=== PATIENT | male | born 1950 | race Caucasian/White ===

== ENCOUNTER → 2017-11-14 | Outpatient (CLI) | payer MEDICARE, OTHER ==
[~2017-11-14] MED LIST: AMLO10 PO; ESOM20 PO; FOLI400 PO; GABA100 PO; HYDACE5 PO; IBUP600 PO; LEVSOD100 PO; LISI20 PO; LISI5 PO; LORA1 PO; METO25ER PO; OMEP20ER PO; OXYACE5T PO; OXYC10ER PO; OXYC5 PO; RIBA200; RXHYDACE PO; [UNRECOGNIZED DRUG - CODE]
== END | disposition home or self-care (01) ==
LOC: LAB 15:00
DX: C85.90 Non-Hodgkin lymphoma, unspecified, unspecified site (principal); L95.9 Vasculitis limited to the skin, unspecified; R21 Rash and other nonspecific skin eruption; D72.818 Other decreased white blood cell count; D69.59 Other secondary thrombocytopenia; R53.83 Other fatigue; R53.81 Other malaise
CPT/HCPCS: 83615; 86592

== ENCOUNTER → 2017-12-23 | Outpatient (CLI) | payer MEDICARE, OTHER ==
[2017-12-23 12:07] LABS: Albumin, Blood 3.4 g/dL (3.4-5.0); Albumin/Globulin Ratio 1.5 (0.8-1.8); Bilirubin, Total 0.7 mg/dL (0.1-1.0); Bun/Creatinine Ratio 40.5 (12.0-20.0); Creatinine, Blood 2.27 mg/dL (0.60-1.20); Globulin, Blood 2.2 g/dL (2.2-4.0); Potassium, Blood 4.1 mmol/L (3.5-5.5); Total Protein, Blood 5.6 g/dL (6.4-8.2)
== END ==
LOC: LAB 11:48 → LAB SHORT 11:48
PROVIDERS: Internal Medicine Hematology & Oncology
DX: C83.07 Small cell B-cell lymphoma, spleen (principal)
CPT/HCPCS: 80053

== ENCOUNTER → 2017-12-30 | Outpatient (CLI) | payer MEDICARE, OTHER ==
[2017-12-30 16:59] LABS: Albumin, Blood 3.2 g/dL (3.4-5.0); Albumin/Globulin Ratio 1.7 (0.8-1.8); Bilirubin, Total 0.7 mg/dL (0.1-1.0); Bun/Creatinine Ratio 25.4 (12.0-20.0); Calcium, Blood 8.5 mg/dL (8.5-10.1); Creatinine, Blood 2.56 mg/dL (0.60-1.20); Globulin, Blood 1.9 g/dL (2.2-4.0); Potassium, Blood 4.2 mmol/L (3.5-5.5); Total Protein, Blood 5.1 g/dL (6.4-8.2)
== END | disposition home or self-care (01) ==
LOC: LAB SHORT 09:00 → LAB 09:00
PROVIDERS: Internal Medicine Hematology & Oncology
DX: C88.4 Extranodal marginal zone B-cell lymphoma of mucosa-associated lymphoid tissue [MALT-lymphoma] (principal); L98.8 Other specified disorders of the skin and subcutaneous tissue
CPT/HCPCS: 80053

== ENCOUNTER → 2020-10-09 | Outpatient (CLI) | payer MEDICARE, OTHER | END | disposition home or self-care (01) | LOC: LAB SHORT 12:53 → LAB 12:53 | DX: L57.8 Other skin changes due to chronic exposure to nonionizing radiation (principal); L81.8 Other specified disorders of pigmentation; B37.2 Candidiasis of skin and nail; B88.9 Infestation, unspecified | CPT/HCPCS: 88305; 88312 ==

== ENCOUNTER 2021-04-09 15:05 | Inpatient (IN) | payer MEDICARE, OTHER ==
[~2021-04-09] VITALS: Ht 177.8 cm; Wt 89.2 kg
[2021-04-09 15:42] LABS: BASOPHILS ABSOLUTE AUTO 0.04 K/mm3 (0.00-0.23); BASOPHILS PERCENT AUTO 1 % (0-2); EOSINOPHILS ABSOLUTE AUTO 0.14 K/mm3 (0.00-0.68); EOSINOPHILS PERCENT AUTO 2 % (0-6); Hematocrit 41.4 % (37.0-53.0); Hemoglobin 14.3 g/dL (13.5-17.5); IMMATURE GRAN ABSOLUTE AUTO 0.03 K/mm3 (0.00-0.10); IMMATURE GRAN PERCENT AUTO 0 % (0-1); LYMPHOCYTES ABSOLUTE AUTO 1.69 K/mm3 (0.84-5.20); LYMPHOCYTES PERCENT AUTO 24 % (21-46); MONOCYTES ABSOLUTE AUTO 0.48 K/mm3 (0.16-1.47); MONOCYTES PERCENT AUTO 7 % (4-13); Mean Corpuscular HGB 32.9 pg (26.0-34.0); Mean Corpuscular HGB Conc 34.5 g/dL (31.5-36.5); Mean Corpuscular Volume 95 fL (80-100); NEUTROPHILS ABSOLUTE AUTO 4.55 K/mm3 (1.96-9.15); NEUTROPHILS PERCENT AUTO 66 % (41-73); Platelet Count 144 K/mm3 (150-400); RDW Coefficient Variation 13.2 % (11.7-14.2); Red Blood Cell Count 4.35 M/mm3 (4.30-5.90); White Blood Cell Count 6.93 K/mm3 (4.00-11.30)
[2021-04-09 16:12] LABS: Albumin, Blood 3.9 g/dL (3.4-5.0); Albumin/Globulin Ratio 1.4 (0.8-1.8); Bilirubin, Total 0.7 mg/dL (0.1-1.0); Bun/Creatinine Ratio 12.8 (12.0-20.0); Calcium, Blood 8.7 mg/dL (8.5-10.1); Creatinine, Blood 1.49 mg/dL (0.60-1.20); Globulin, Blood 2.8 g/dL (2.2-4.0); Total Protein, Blood 6.7 g/dL (6.4-8.2)
[2021-04-09 16:25] LABS: Troponin I 8.44 ng/mL (0.000-0.040)
[2021-04-09] MEDS ORDERED: TOPROL XL50 M1 PO (17:06)
[2021-04-09] MEDS ORDERED: Catapres0.1 MG PO (17:08)
[2021-04-09] MEDS ORDERED: LISI5 PO (17:08)
[2021-04-09] MEDS ORDERED: AMLODIPINE BESYL5 MG PO (17:09)
[2021-04-09 19:34] LABS: International Normalized Ratio 1.04; Prothrombin Time Results 11.2 Sec (9.7-11.5)
[2021-04-09 20:27] LABS: SARS-Cov-2 (COVID-19) PCR, MMC NEGATIVE (NEGATIVE)
[2021-04-10 02:10] LABS: Hematocrit 40.2 % (37.0-53.0); Hemoglobin 14.1 g/dL (13.5-17.5); Mean Corpuscular HGB 33.2 pg (26.0-34.0); Mean Corpuscular HGB Conc 35.1 g/dL (31.5-36.5); Mean Corpuscular Volume 95 fL (80-100); Mean Platelet Volume 9.9 fL (9.1-12.4); Platelet Count 130 K/mm3 (150-400); RDW Coefficient Variation 13.1 % (11.7-14.2); RDW Standard Deviation 45.2 fL (35.1-46.3); Red Blood Cell Count 4.25 M/mm3 (4.30-5.90); White Blood Cell Count 7.11 K/mm3 (4.00-11.30)
[2021-04-10 02:25] LABS: LDL/HDL RATIO 4.1
[2021-04-10 02:26] LABS: Anion Gap 4 mmol/L (6-16); Blood Urea Nitrogen 19 mg/dL (8-24); Bun/Creatinine Ratio 13.9 (12.0-20.0); CHOL/HDL RATIO 6.2; CO2, Blood 25 mmol/L (21-32); Calcium, Blood 8.9 mg/dL (8.5-10.1); Chloride, Blood 110 mmol/L (98-108); Cholesterol 160 mg/dL (50-200); Creatinine, Blood 1.37 mg/dL (0.60-1.20); Glomerular Filtration Rate 52 (60-); Glucose, Blood 103 mg/dL (70-99); HDL Cholesterol 26 mg/dL (>39); Low Density Lipoprotein Chol 106 mg/dL (0-110); Potassium, Blood 3.8 mmol/L (3.5-5.5); Sodium, Blood 139 mmol/L (136-145); Triglycerides 139 mg/dL (30-160); Very Low Density Lipoprot Chol 27 mg/dL (6-32)
--- NOTE | 2021-04-10 02:52 | NUR ---
ADMISSION NOTE PT ARRIVED AT PCU AT 2053. HEPARIN DRIP INFUSING IN RIGHT AC. PT ALERT AND ORIENTED X4. COOPERATIVE AND RESPONSIVE TO CARE. CHEST PAIN INITIALLY 1-2/10 NEAR LEFT ARM. TROPONIN LEVELS INCREASED FROM 7.3 @17:19 TO 8.73 @0:57. PROVIDER NOTIFIED AND CARDIOLOGY CONSULT ORDERED WITH DR CHICAS. PT IS NSR IN THE 60'S AND MAINTAINING OVER 96% O2 SATS ON RA. BP STABLE. NO CHEST PAIN AT THIS TIME. IN BED RESTING WITH CALL ALARM AT SIDE. WILL CONTINUE TO MONITOR
--- NOTE | 2021-04-10 06:52 | NUR ---
SHIFT SUMMARY PT ALERT AND ORIENTED X4. NO CHEST PAIN AT THIS TIME. VSS. HR NSR 60'S AND 70'S AND 02 SATS >97% ON RA. PLEASANT AND COOPERATIVE TO CARE. CARDIOLOGY CONSULT WITH DR CHICAS TODAY. COMPLETELY INDEPENDENT FOR ADLS. NPO. RIGHT A/C PATENT WITH HEPARIN INFUSING. IN BED WATCHING TV WITH CALL ALARM AT SIDE. WILL CONTINUE TO MONITOR UNTIL REPORT GIVEN TO DAYSHIFT RN.
--- NOTE | 2021-04-10 09:27 | NUR ---
PATIENT TO ANODIZER FOR PROCEDURE
--- NOTE | 2021-04-10 10:42 | NUR ---
RETURN FROM [facility] PATIENT BACK FROM [facility]. BEDSIDE REPORT GIVEN FROM [facility] STAFF. TR BAND IN PLACE. 13ML OF AIR IN TR BAND AT 1025. NO BLEEDING UNDER TR BAND. VITALS STABLE.
--- NOTE | 2021-04-10 16:04 | NUR ---
UPDATE STARTED TO DEFLATE PATIENT'S TR BAND AT 1200. TR BAND WAS COMPLETLEY DEFLATED AT 1430. SUCCESSFULLY ABLE TO DEFLATE TR BAND BY 2ML OF AIR EVERY 30 MINUTES. TR BAND REMOVED AT 1530 AND REPLACED WITH WINDOW TEGADERM. NO SWELLING AND MINIMAL OOZING AT ANGIO SITE. PULSES PALPABLE. CAP REFILL <3 SECONDS. DENIES CHEST PAIN OR DISCOMFORT. RESTING QUIETLY.
--- NOTE | 2021-04-10 17:50 | NUR ---
SHIFT SUMMARY PATIENT A&Ox4 THROUGHOUT SHIFT. VITAL SIGNS STABLE. OXYGEN SATURATION REMAINS ABOVE 92% ON RA. DENIED CHEST PAIN PRIOR TO AND AFTER ANGIO. RIGHT RADIAL ANGIO SITE IS COVERED WITH WINDOW DRESSING. MINIMAL OOZING FROM SITE AFTER REMOVAL OF TR BAND. NO EDEMA NOTED. CAPILLARY REFILL <3 SECONDS. DENIES PAIN, NUMBNESS OR TINGLING IN RIGHT HAND. BOARD IN PLACE ON RIGHT WRIST. RESTING COMFORTABLY, CALL LIGHT IN REACH. WILL REPORT TO COMPLAINT EVALUATION SUPERVISOR RN.
[2021-04-11 03:12] LABS: BASOPHILS ABSOLUTE AUTO 0.02 K/mm3 (0.00-0.23); BASOPHILS PERCENT AUTO 0 % (0-2); EOSINOPHILS ABSOLUTE AUTO 0.15 K/mm3 (0.00-0.68); EOSINOPHILS PERCENT AUTO 3 % (0-6); Hematocrit 34.7 % (37.0-53.0); Hemoglobin 12.4 g/dL (13.5-17.5); IMMATURE GRAN ABSOLUTE AUTO 0.03 K/mm3 (0.00-0.10); IMMATURE GRAN PERCENT AUTO 1 % (0-1); LYMPHOCYTES ABSOLUTE AUTO 1.74 K/mm3 (0.84-5.20); LYMPHOCYTES PERCENT AUTO 30 % (21-46); MONOCYTES ABSOLUTE AUTO 0.68 K/mm3 (0.16-1.47); MONOCYTES PERCENT AUTO 12 % (4-13); Mean Corpuscular HGB 33.2 pg (26.0-34.0); Mean Corpuscular HGB Conc 35.7 g/dL (31.5-36.5); Mean Corpuscular Volume 93 fL (80-100); NEUTROPHILS ABSOLUTE AUTO 3.17 K/mm3 (1.96-9.15); NEUTROPHILS PERCENT AUTO 55 % (41-73); Platelet Count 124 K/mm3 (150-400); RDW Standard Deviation 44.3 fL (35.1-46.3); Red Blood Cell Count 3.73 M/mm3 (4.30-5.90); White Blood Cell Count 5.79 K/mm3 (4.00-11.30)
[2021-04-11 03:26] LABS: Albumin, Blood 3.3 g/dL (3.4-5.0); Anion Gap 6 mmol/L (6-16); Blood Urea Nitrogen 17 mg/dL (8-24); Bun/Creatinine Ratio 12.2 (12.0-20.0); CO2, Blood 25 mmol/L (21-32); Calcium, Blood 8.5 mg/dL (8.5-10.1); Chloride, Blood 109 mmol/L (98-108); Creatinine, Blood 1.39 mg/dL (0.60-1.20); Glomerular Filtration Rate 51 (60-); Glucose, Blood 101 mg/dL (70-99); Sodium, Blood 140 mmol/L (136-145)
--- NOTE | 2021-04-11 08:22 | NUR ---
SHIFT SUMMARY: PT C/O INTERMITTENT CHEST PAIN THROUGHOUT NIGHT. STARTED ON RANEXA PER ORDERS. TROPONINS CONTINUING TO TREND DOWN. HEP GTT INFUSING PER EMAR. ACCESS SITE TO R WRIST C/D/I WITH TEGADERM IN PLACE. NO BLEEDING OR HEMATOMA PRESENT. PT C/O NAUSEA THIS MORNING. REPORT GIVEN TO DAY SHIFT RN WHO RECIEVED ORDER FOR ZOFRAN. PT APPEARS TO BE RESTING MOST OF SHIFT. VS WNL T/O NIGHT.
--- NOTE | 2021-04-11 11:34 | NUR ---
AM NOTE... ASSUMED CARE OF PT AT 0700 PT IS A&Ox4 AND IND IN THE ROOM. PT IS S/P ANGIO WITH RIGHT RADIAL SITE, SITE HAS A TEGADERM DRESSING THAT IS C/D/I WITH NO SWELLING, BLEEDING OR HEMATOMA. PT IS IN SR W/PACs IN THE 70'S, PT'S BP STABLE PT HAS C/O OF CHEST PAIN 1/10 AND SOME NAUSEA, THIS WAS TREATED WITH ZOFRAN WHICH THE PT STATED HELPED. NO EDEMA NOTED ON ASSESSMENT. PT'S HEPARIN GTT WAS D/C'd BY BUSINESS MANAGEMENT SPECIALIST. PT IS ON RA WITH O2 SATS >95% L/S CLEAR T/O. PT DOES BECOME SOB WITH ACTIVITY. PT IS HOPING TO D/C HOME TODAY. WILL CONTINUE TO MONITOR.
[2021-04-11] MEDS ORDERED: NAC600 MG PO (14:05)
[2021-04-11] MEDS ORDERED: ATOR80 PO (14:06)
[2021-04-11] MEDS ORDERED: CLOP75 PO (14:06)
[2021-04-11] MEDS ORDERED: ASPI81CH PO (14:06)
[2021-04-11] MEDS ORDERED: RANO500T PO (14:07)
[2021-04-11] MEDS ORDERED: Isosorbide Mono30 MG PO (14:07)
[2021-04-11] MEDS ORDERED: DOCU100 PO (14:07)
--- NOTE | 2021-04-11 15:22 | NUR ---
PT D/C HOME PT D/C HOME WITH HIS , ALL OF PTS BELONGINGS PACKED AND SENT WITH THE PT. DISCHARGE INFORMATION AND EDUCATION PROVIDED IN WRITTEN AND VERBAL FORMAT. IV WAS REMOVED WNL. PT DENIED ANY CHEST PAIN/PRESSURE N/V OR SOB UPON D/C.
== END 2021-04-11 15:39 | disposition home or self-care (01) | DRG 281 ==
LOC: ER 15:05 → PCU 18:49 → SURS 04-10 14:00
PROVIDERS: Internal Medicine Nephrology; Pharmacist; Physician Assistant; Student in an Organized Health Care Education/Training Program; ADMIT Hospitalist
PROC: 4A023N7 Measurement of Cardiac Sampling and Pressure, Left Heart, Percutaneous Approach (ICD-10-PCS; principal; 2021-04-10)
PROC: B211YZZ Fluoroscopy of Multiple Coronary Arteries using Other Contrast (ICD-10-PCS; 2021-04-10)
DX: I21.4 Non-ST elevation (NSTEMI) myocardial infarction (principal); C85.90 Non-Hodgkin lymphoma, unspecified, unspecified site; N25.81 Secondary hyperparathyroidism of renal origin; Z20.822 Contact with and (suspected) exposure to COVID-19; I25.10 Atherosclerotic heart disease of native coronary artery without angina pectoris; D69.6 Thrombocytopenia, unspecified; I12.9 Hypertensive chronic kidney disease with stage 1 through stage 4 chronic kidney disease, or unspecified chronic kidney disease; N18.31 Chronic kidney disease, stage 3a; L95.9 Vasculitis limited to the skin, unspecified; D64.9 Anemia, unspecified; E86.9 Volume depletion, unspecified; E87.70 Fluid overload, unspecified; N28.9 Disorder of kidney and ureter, unspecified; E83.39 Other disorders of phosphorus metabolism; Z79.899 Other long term (current) drug therapy; Z88.0 Allergy status to penicillin; Z88.5 Allergy status to narcotic agent; Z87.891 Personal history of nicotine dependence; Z85.820 Personal history of malignant melanoma of skin; Z86.19 Personal history of other infectious and parasitic diseases
CPT/HCPCS: 36415; 71046; 71275; 74175; 76937; 80048; 80053; 80061; 80069; 83036; 83690; 83735; 83880; 84484; 85025; 85027; 85610; 85730; 93005; 93010; 93306; 93454; 96365; 99152; 99153; 99285-25; A9270; C1769; C1894; J1644; J2250; J2405; J3010; J7030; J7040; J7050; J7060; Q9967; U0004

== ENCOUNTER 2021-05-15 10:41 | Emergency (ER) | payer MEDICARE, OTHER ==
[~2021-05-15] VITALS: Ht 175.3 cm; Wt 88.5 kg
[~2021-05-15 10:41] MED LIST changes: +AMLODIPINE BESYL5 MG PO; +ASPI81CH PO; +ATOR80 PO; +CLOP75 PO; +Catapres0.1 MG PO; +DOCU100 PO; +Isosorbide Mono30 MG PO; +NAC600 MG PO; +RANO500T PO; +TOPROL XL50 M1 PO
[2021-05-15 11:28] LABS: BASOPHILS ABSOLUTE AUTO 0.03 K/mm3 (0.00-0.23); BASOPHILS PERCENT AUTO 0 % (0-2); EOSINOPHILS PERCENT AUTO 0 % (0-6); Hematocrit 38.1 % (37.0-53.0); Hemoglobin 13.4 g/dL (13.5-17.5); IMMATURE GRAN ABSOLUTE AUTO 0.09 K/mm3 (0.00-0.10); IMMATURE GRAN PERCENT AUTO 1 % (0-1); LYMPHOCYTES ABSOLUTE AUTO 1.19 K/mm3 (0.84-5.20); LYMPHOCYTES PERCENT AUTO 6 % (21-46); MONOCYTES PERCENT AUTO 5 % (4-13); Mean Corpuscular HGB 33.1 pg (26.0-34.0); Mean Corpuscular HGB Conc 35.2 g/dL (31.5-36.5); Mean Corpuscular Volume 94 fL (80-100); Mean Platelet Volume 10.4 fL (9.1-12.4); NEUTROPHILS ABSOLUTE AUTO 17.05 K/mm3 (1.96-9.15); NEUTROPHILS PERCENT AUTO 88 % (41-73); Platelet Count 158 K/mm3 (150-400); RDW Standard Deviation 41.6 fL (35.1-46.3); Red Blood Cell Count 4.05 M/mm3 (4.30-5.90); White Blood Cell Count 19.26 K/mm3 (4.00-11.30)
[2021-05-15 11:41] LABS: Alanine Aminotransfer (ALT/SGP 50 U/L (12-78); Albumin, Blood 3.5 g/dL (3.4-5.0); Albumin/Globulin Ratio 1.1 (0.8-1.8); Alk Phos 86 U/L (50-136); Anion Gap 7 mmol/L (6-16); Aspartate Aminotrans (AST/SGOT 30 U/L (12-37); Bilirubin, Total 0.3 mg/dL (0.1-1.0); Blood Urea Nitrogen 35 mg/dL (8-24); Bun/Creatinine Ratio 15.2 (12.0-20.0); CO2, Blood 25 mmol/L (21-32); Calcium, Blood 9.1 mg/dL (8.5-10.1); Chloride, Blood 105 mmol/L (98-108); Globulin, Blood 3.3 g/dL (2.2-4.0); Glomerular Filtration Rate 28 (60-); Glucose, Blood 179 mg/dL (70-99); Potassium, Blood 4.9 mmol/L (3.5-5.5); Sodium, Blood 137 mmol/L (136-145); Total Protein, Blood 6.8 g/dL (6.4-8.2); Troponin I <0.015 ng/mL (0.000-0.040)
== END 2021-05-15 15:10 | disposition home or self-care (01) ==
LOC: ER 10:41
PROVIDERS: Emergency Medicine
DX: R07.9 Chest pain, unspecified (principal); I77.6 Arteritis, unspecified; I10 Essential (primary) hypertension; I25.10 Atherosclerotic heart disease of native coronary artery without angina pectoris; I25.2 Old myocardial infarction; Z23 Encounter for immunization; Z88.5 Allergy status to narcotic agent; Z88.0 Allergy status to penicillin; Z79.899 Other long term (current) drug therapy; Z79.82 Long term (current) use of aspirin; Z79.02 Long term (current) use of antithrombotics/antiplatelets; Z87.891 Personal history of nicotine dependence; Z95.5 Presence of coronary angioplasty implant and graft
CPT/HCPCS: 0031A; 36415; 71045; 80053; 83880; 84484; 85025; 91303; 93005; 93010; 99285-25

== ENCOUNTER → 2021-08-27 | Outpatient (CLI) | payer MEDICARE, OTHER ==
[~2021-08-27] MED LIST changes: +AMLO5 PO; +CEPH500 PO; +DILT120ERA PO; +METO50 PO; +METO50ER PO; +MINOCYCLINE HC100 M2 PO; +PANT40 PO; +Seroquel Xr50 MG PO; +TEMA30 PO; +Tessalon200 MG PO
== END | disposition home or self-care (01) ==
LOC: PLD 12:00
DX: L43.9 Lichen planus, unspecified (principal)
CPT/HCPCS: 87070; 87102; 87205; 88305

== ENCOUNTER → 2021-11-16 | Outpatient (CLI) | payer MEDICARE, OTHER | END | disposition home or self-care (01) | LOC: LAB SHORT 12:03 | DX: C44.219 Basal cell carcinoma of skin of left ear and external auricular canal (principal) | CPT/HCPCS: 88305 ==

== ENCOUNTER → 2021-12-28 | Outpatient (CLI) | payer MEDICARE, OTHER | END | disposition home or self-care (01) | LOC: LAB SHORT 07:38 → PLD 07:38 → LAB 07:38 | DX: C44.219 Basal cell carcinoma of skin of left ear and external auricular canal (principal); D22.22 Melanocytic nevi of left ear and external auricular canal | CPT/HCPCS: 88305 ==

== ENCOUNTER → 2023-03-01 | Outpatient (CLI) | payer MEDICARE, OTHER ==
[~2023-03-01] MED LIST changes: +ALLO100 PO; +MAGNESIUM OXID500 MG PO
== END | disposition home or self-care (01) ==
LOC: LAB SHORT 12:01 → PLD 12:01
DX: D23.71 Other benign neoplasm of skin of right lower limb, including hip (principal)
CPT/HCPCS: 88305; 88342

== ENCOUNTER 2023-03-15 09:24 | Day surgery (SDC) | payer MEDICARE, OTHER ==
[2023-03-15] VITALS (7 sets, daily range): BP systolic 107–173; BP diastolic 69–106
[~2023-03-15] VITALS: Ht 175.3 cm; Wt 87.8 kg
[~2023-03-15 09:24] MED LIST changes: +FENOFIBRATE30 MG PO; +Nifedipine5 GM TOP
[2023-03-15] MEDS ORDERED: POLYETHYLENE G500 G1 PO (09:51)
[2023-03-15 10:37] LABS: Hematocrit 43.9 % (37.0-53.0); Hemoglobin 14.8 g/dL (13.5-17.5); Mean Corpuscular HGB 31.7 pg (26.0-34.0); Mean Corpuscular HGB Conc 33.7 g/dL (31.5-36.5); Mean Corpuscular Volume 94 fL (80-100); Mean Platelet Volume 10.3 fL (9.1-12.4); Platelet Count 200 K/mm3 (150-400); RDW Coefficient Variation 12.9 % (11.7-14.2); RDW Standard Deviation 43.8 fL (35.1-46.3); Red Blood Cell Count 4.67 M/mm3 (4.30-5.90); White Blood Cell Count 8.41 K/mm3 (4.00-11.30)
[2023-03-15 10:48] LABS: International Normalized Ratio 1.07; Prothrombin Time Results 11.2 Sec (9.7-11.5)
[2023-03-15 10:49] LABS: Bun/Creatinine Ratio 10.7 (12.0-20.0); Calcium, Blood 9.4 mg/dL (8.5-10.1); Creatinine, Blood 2.43 mg/dL (0.60-1.20)
--- NOTE | 2023-03-15 10:57 | NUR ---
PATIENT CARE RESUMED BY LIBERTAD FERNANDO RN. CALL LIGHT WITHIN REACH OF PATIENT.
--- NOTE | 2023-03-15 15:00 | NUR ---
DISCHARGE SUMMARY PT A&OX4, VSS/RA, STEVAN PO, VOIDED, INDEPENDENT/DRESSED SELF, IV DC'D, LEFT FLOOR VIA WC WITH RN, TO GO HOME WITH /[employer], WITH ALL PERSONAL POSSESSIONS INCLUDING DC PACKET/1 NARC SCRIPT/YA MED. DC INS PROVIDED AND PT REP UNDERSTANDING THOSE INSTRUCTIONS.
== END 2023-03-15 23:20 | disposition home or self-care (01) ==
LOC: ORSCMMR 09:24 → ORD 09:24 → ORSCMMR 09:25 → ORD 23:20
PROVIDERS: Surgery
PROC: 0DBQ7ZZ Excision of Anus, Via Natural or Artificial Opening (ICD-10-PCS; principal; 2023-03-15 10:30)
PROC: 0DBQXZX Excision of Anus, External Approach, Diagnostic (ICD-10-PCS; principal; 2023-03-15 10:30)
PROC: 0DBQ0ZZ Excision of Anus, Open Approach (ICD-10-PCS; principal; 2023-03-15 10:30)
DX: K60.2 Anal fissure, unspecified (principal); K60.3 Anal fistula; K64.4 Residual hemorrhoidal skin tags; I25.10 Atherosclerotic heart disease of native coronary artery without angina pectoris; I12.9 Hypertensive chronic kidney disease with stage 1 through stage 4 chronic kidney disease, or unspecified chronic kidney disease; N18.4 Chronic kidney disease, stage 4 (severe); Z85.72 Personal history of non-Hodgkin lymphomas; Z87.891 Personal history of nicotine dependence; Z79.02 Long term (current) use of antithrombotics/antiplatelets; Z79.899 Other long term (current) drug therapy; Z79.82 Long term (current) use of aspirin
CPT/HCPCS: 80048; 85027; 85610; 85730; 88304; 88305; A9270; J0690; J1100; J2405; J2704; J3010; J7120

== ENCOUNTER 2023-03-23 12:16 | Inpatient (IN) | payer MEDICARE, OTHER ==
[~2023-03-23] VITALS: Ht 175.3 cm; Wt 85.2 kg
[~2023-03-23 12:16] MED LIST changes: +POLYETHYLENE G500 G1 PO
[2023-03-23 13:03] LABS: BASOPHILS ABSOLUTE AUTO 0.07 K/mm3 (0.00-0.23); BASOPHILS PERCENT AUTO 1 % (0-2); EOSINOPHILS ABSOLUTE AUTO 0.48 K/mm3 (0.00-0.68); EOSINOPHILS PERCENT AUTO 4 % (0-6); Hematocrit 44.1 % (37.0-53.0); Hemoglobin 15.1 g/dL (13.5-17.5); IMMATURE GRAN PERCENT AUTO 1 % (0-1); LYMPHOCYTES PERCENT AUTO 25 % (21-46); MONOCYTES ABSOLUTE AUTO 1.25 K/mm3 (0.16-1.47); MONOCYTES PERCENT AUTO 11 % (4-13); Mean Corpuscular HGB 32.3 pg (26.0-34.0); Mean Corpuscular HGB Conc 34.2 g/dL (31.5-36.5); Mean Corpuscular Volume 94 fL (80-100); Mean Platelet Volume 10.3 fL (9.1-12.4); NEUTROPHILS ABSOLUTE AUTO 6.68 K/mm3 (1.96-9.15); NEUTROPHILS PERCENT AUTO 59 % (41-73); Platelet Count 200 K/mm3 (150-400); RDW Coefficient Variation 12.7 % (11.7-14.2); RDW Standard Deviation 43.9 fL (35.1-46.3); Red Blood Cell Count 4.68 M/mm3 (4.30-5.90); White Blood Cell Count 11.38 K/mm3 (4.00-11.30)
[2023-03-23 13:16] LABS: Albumin, Blood 3.7 g/dL (3.4-5.0); Albumin/Globulin Ratio 1.4 (0.8-1.8); Bilirubin, Total 0.6 mg/dL (0.1-1.0); Bun/Creatinine Ratio 14.1 (12.0-20.0); Calcium, Blood 8.4 mg/dL (8.5-10.1); Creatinine, Blood 4.81 mg/dL (0.60-1.20); Globulin, Blood 2.7 g/dL (2.2-4.0); Potassium, Blood 4.4 mmol/L (3.5-5.5); Total Protein, Blood 6.4 g/dL (6.4-8.2)
[2023-03-23 14:14] LABS: BASOPHILS ABSOLUTE AUTO 0.04 K/mm3 (0.00-0.23); BASOPHILS PERCENT AUTO 0 % (0-2); EOSINOPHILS ABSOLUTE AUTO 0.32 K/mm3 (0.00-0.68); EOSINOPHILS PERCENT AUTO 3 % (0-6); Hematocrit 41.7 % (37.0-53.0); Hemoglobin 14.2 g/dL (13.5-17.5); IMMATURE GRAN ABSOLUTE AUTO 0.09 K/mm3 (0.00-0.10); IMMATURE GRAN PERCENT AUTO 1 % (0-1); LYMPHOCYTES ABSOLUTE AUTO 1.84 K/mm3 (0.84-5.20); LYMPHOCYTES PERCENT AUTO 19 % (21-46); MONOCYTES ABSOLUTE AUTO 1.24 K/mm3 (0.16-1.47); MONOCYTES PERCENT AUTO 12 % (4-13); Mean Corpuscular HGB 31.8 pg (26.0-34.0); Mean Corpuscular HGB Conc 34.1 g/dL (31.5-36.5); Mean Corpuscular Volume 94 fL (80-100); Mean Platelet Volume 10.3 fL (9.1-12.4); NEUTROPHILS ABSOLUTE AUTO 6.44 K/mm3 (1.96-9.15); NEUTROPHILS PERCENT AUTO 65 % (41-73); Platelet Count 167 K/mm3 (150-400); RDW Coefficient Variation 12.8 % (11.7-14.2); RDW Standard Deviation 43.8 fL (35.1-46.3); Red Blood Cell Count 4.46 M/mm3 (4.30-5.90); White Blood Cell Count 9.97 K/mm3 (4.00-11.30)
[2023-03-23 14:41] LABS: Bun/Creatinine Ratio 14.4 (12.0-20.0); Calcium, Blood 8.3 mg/dL (8.5-10.1); Creatinine, Blood 4.66 mg/dL (0.60-1.20); Magnesium, Blood 2.2 mg/dL (1.6-2.4); Phosphorus, Blood 4.9 mg/dL (2.5-4.9); Potassium, Blood 4.5 mmol/L (3.5-5.5); Thyroid Stimulating Hormone 0.712 uIU/mL (0.360-4.800)
[2023-03-23 16:02] LABS: Source, Urine Clean Catch
[2023-03-23 16:24] LABS: Appearance, Urine Clear (Clear); Bilirubin, Urine Neg (Neg); Blood, Urine Neg (Neg); Color, Urine Yellow (P-Yellow); Glucose Qualitative, Urine Neg (Neg); Ketones, Urine Neg (Neg); Leukocyte Esterase, Urine Neg (Neg); Nitrite, Urine Neg (Neg); Protein, Urine Neg (Neg); Urobilinogen, Urine NORM (Normal)
[2023-03-23 17:22] VITALS: BP 88/64
[2023-03-23] MEDS ORDERED: FENOFIBRATE48 MG PO (18:31)
[2023-03-23 19:34] VITALS: BP 127/67
--- NOTE | 2023-03-24 04:04 | NUR ---
CONTRACTOR BROOMCORN THRESHING SUMMARY NO ACUTE CHANGES OVERNIGHT. A&OX4. PATIENT EFFECTIVELY COMMUNICATES NEEDS. VSS. RR EVEN AND UNLABORED ON RA. TELE REVEALS SINUS RHYTHM, HR 70'S. NS INFUSING @ 100ML/HR. NO ACUTE SIGNS OR SYMPTOMS. BED LOW AND LOCKED. CALL LIGHT WITHIN REACH. THIS RN WILL CONTINUE TO MONITOR.
[2023-03-24 04:30] VITALS: BP 131/78
[2023-03-24 08:15] LABS: Hematocrit 43.2 % (37.0-53.0); Hemoglobin 14.8 g/dL (13.5-17.5)
[2023-03-24 08:16] VITALS: BP 136/72
[2023-03-24 08:38] LABS: Albumin, Blood 3.9 g/dL (3.4-5.0); Anion Gap 6 mmol/L (6-16); Blood Urea Nitrogen 52 mg/dL (8-24); Bun/Creatinine Ratio 17.7 (12.0-20.0); CO2, Blood 25 mmol/L (21-32); Calcium, Blood 8.5 mg/dL (8.5-10.1); Chloride, Blood 108 mmol/L (98-108); Creatinine, Blood 2.94 mg/dL (0.60-1.20); Glomerular Filtration Rate 22 (60-); Glucose, Blood 106 mg/dL (70-99); Magnesium, Blood 2.3 mg/dL (1.6-2.4); Phosphorus, Blood 2.9 mg/dL (2.5-4.9); Potassium, Blood 4.4 mmol/L (3.5-5.5); Sodium, Blood 139 mmol/L (136-145)
[2023-03-24 15:15] VITALS: BP 134/72
--- NOTE | 2023-03-24 17:31 | NUR ---
SHIFT SUMMARY PT UP TO BATHROOM SEVERAL TIMES TODAY USING FWW. NO FEELING DIZZY. REPORTS DIARRHEA THIS AFTERNOON. MEDICATED FOR PAIN AT RECTAL FISTULA SITE WITH TYLENOL WITH EFFECT. IN TO VISIT FOR SHORT TIME THIS AFTERNOON. IV FLUIDS CONTINUES TO INFUSE.
[2023-03-24 19:59] VITALS: BP 112/86
[2023-03-25 04:04] VITALS: BP 115/83
--- NOTE | 2023-03-25 04:24 | NUR ---
SHIFT SUMMARY PATIENT A/Ox4, BRIGHT AFFECT, HYPERVERBAL AT TIMES. C/O PAIN TO RECTAL AREA R/T FISTULA, RECEIVED PRN ANALGESIC MEDICATION AND TOLERATED WELL WITHOUT FURTHER COMPLAINT. MOSTLY INDEPENDANT, SBA WITH FWW FOR TRANSFERS. PIV TO LEFT ARM WAS REMOVED DUE TO LEAKING, AND DRESSING BEING DISLODGED. NEW IV PLACED TO RIGHT UPPER ARM, INFUSING NS AT 75mL/HR. NO ACUTE CHANGES NOTED OVERNIGHT. BED LOW, CALL LIGHT WITHIN REACH.
[2023-03-25 06:17] LABS: Hematocrit 40.8 % (37.0-53.0); Hemoglobin 13.9 g/dL (13.5-17.5)
[2023-03-25 06:43] LABS: Albumin, Blood 3.4 g/dL (3.4-5.0); Anion Gap 3 mmol/L (6-16); Blood Urea Nitrogen 37 mg/dL (8-24); Bun/Creatinine Ratio 16.4 (12.0-20.0); CO2, Blood 24 mmol/L (21-32); Calcium, Blood 8.4 mg/dL (8.5-10.1); Chloride, Blood 113 mmol/L (98-108); Creatinine, Blood 2.26 mg/dL (0.60-1.20); Glomerular Filtration Rate 30 (60-); Glucose, Blood 93 mg/dL (70-99); Magnesium, Blood 1.9 mg/dL (1.6-2.4); Phosphorus, Blood 2.5 mg/dL (2.5-4.9); Potassium, Blood 4.6 mmol/L (3.5-5.5); Sodium, Blood 140 mmol/L (136-145)
[2023-03-25 07:38] VITALS: BP 118/90
[2023-03-25 07:41] VITALS: BP 152/74
--- NOTE | 2023-03-25 12:17 | NUR ---
DISCHARGE NOTE- PT WAS GIVEN VERBAL AND WRITTEN DISCHARGE INSTRUCTIONS AND ACKNOWLEDGED UNDERSTANDING OF THEM. IV AND TELE DC'D BY THE EP SPECIALIST. PT AWAITING THE ARRIVAL OF HIS FAMILY FOR A RIDE HOME, NO S&S OF DISTRESS. PT WILL BE ESCORTED OUT VIA WC BY THE EP SPECIALIST.
[2023-03-29 13:10] LABS: ANTIMYELOPEROXIDASE (MPO) ABS <0.2 units (0.0-0.9); ANTIPROTEINASE 3 (PR-3) ABS <0.2 units (0.0-0.9); ATYPICAL PANCA <1:20 titer (Neg:<1:20); CYTOPLASMIC (C-ANCA) <1:20 titer (Neg:<1:20); PERINUCLEAR (P-ANCA) <1:20 titer (Neg:<1:20)
== END 2023-03-25 16:13 | disposition home or self-care (01) | DRG 683 ==
LOC: ER 12:16 → MEDS 14:45 → ENPENDDIS 03-25 10:10 → MEDS 03-25 16:13
PROVIDERS: Emergency Medicine; Internal Medicine Nephrology; Physician Assistant; ADMIT Family Medicine
DX: N17.9 Acute kidney failure, unspecified (principal); E87.1 Hypo-osmolality and hyponatremia; N18.4 Chronic kidney disease, stage 4 (severe); E86.0 Dehydration; I70.1 Atherosclerosis of renal artery; I95.9 Hypotension, unspecified; I12.9 Hypertensive chronic kidney disease with stage 1 through stage 4 chronic kidney disease, or unspecified chronic kidney disease; M10.9 Gout, unspecified; E86.9 Volume depletion, unspecified; D63.1 Anemia in chronic kidney disease; E83.51 Hypocalcemia; I25.10 Atherosclerotic heart disease of native coronary artery without angina pectoris; N50.82 Scrotal pain; Z95.1 Presence of aortocoronary bypass graft; Z87.891 Personal history of nicotine dependence; Z85.820 Personal history of malignant melanoma of skin; Z85.72 Personal history of non-Hodgkin lymphomas; Z88.8 Allergy status to other drugs, medicaments and biological substances; Z88.5 Allergy status to narcotic agent; Z88.0 Allergy status to penicillin; Z91.048 Other nonmedicinal substance allergy status; Z79.02 Long term (current) use of antithrombotics/antiplatelets; Z79.82 Long term (current) use of aspirin; Z79.899 Other long term (current) drug therapy; Z79.811 Long term (current) use of aromatase inhibitors; Z98.890 Other specified postprocedural states
CPT/HCPCS: 36415; 70450; 71046; 76770; 76870; 80048; 80053; 80069; 81003; 83516; 83520; 83735; 84100; 84443; 84484; 85014; 85018; 85025; 85651; 86037; 86038; 93005; 93010; 99285-25; A9270; J1644; J7030

== ENCOUNTER → 2023-08-10 | Outpatient (CLI) | payer MEDICARE, OTHER ==
[~2023-08-10] MED LIST changes: +FENOFIBRATE48 MG PO
== END ==
LOC: LAB SHORT 08:10 → LAB 08:10
DX: C44.212 Basal cell carcinoma of skin of right ear and external auricular canal (principal); L72.8 Other follicular cysts of the skin and subcutaneous tissue
CPT/HCPCS: 88304; 88305